=== PATIENT | female | born 1940 | race Caucasian/White ===

== ENCOUNTER → 2021-11-11 | Outpatient (RCR) | payer MEDICARE, OTHER | END | disposition home or self-care (01) | LOC: ONC 10-23 08:46 | PROVIDERS: ATTEND Radiology Radiation Oncology | DX: Z51.0 Encounter for antineoplastic radiation therapy (principal); C20 Malignant neoplasm of rectum | CPT/HCPCS: 77300; 77301; 77334; 77336; 77338; 77386; 77470; 99204 ==

== ENCOUNTER → 2021-12-12 | Outpatient (RCR) | payer MEDICARE, OTHER | END | disposition home or self-care (01) | LOC: ONC 11-13 14:13 | PROVIDERS: ATTEND Radiology Radiation Oncology | DX: Z51.0 Encounter for antineoplastic radiation therapy (principal); C20 Malignant neoplasm of rectum | CPT/HCPCS: 77300; 77301; 77334; 77336; 77338; 77386 ×5; 77470; G0463 ×3; 99204 ==

== ENCOUNTER 2021-12-18 13:06 | Outpatient (RCR) | payer MEDICARE, OTHER | END 2022-01-11 | disposition home or self-care (01) | LOC: ONC 13:06 | PROVIDERS: ATTEND Radiology Radiation Oncology | DX: Z51.0 Encounter for antineoplastic radiation therapy (principal); C20 Malignant neoplasm of rectum | CPT/HCPCS: 77336; 77386 ==

== ENCOUNTER 2022-03-20 10:56 | Outpatient (RCR) | payer MEDICARE, OTHER | END 2022-04-13 | disposition home or self-care (01) | LOC: ONC 10:56 | PROVIDERS: ATTEND Radiology Radiation Oncology | DX: C20 Malignant neoplasm of rectum (principal) | CPT/HCPCS: 99213 ==